=== PATIENT | male | born 1985 | race Caucasian/White ===

== ENCOUNTER 2024-02-19 09:31 | Outpatient (OUT) | payer BC, SELFPAY ==
--- NOTE | 2024-02-19 | XR_ITS ---
[address] [address] Patient Name: MIGUELITO FIELDS MRN: [id number] date: 1985 Sex: M Assigned Patient Location: Current Patient Location: Accession/Order Number: [id number] Exam Date: 02/19/2024 09:40 Report Date: 02/19/2024 10:10 At the request of: ARPITA FLORES Procedure: XR foot RT min 3V PROCEDURE: XR foot RT min 3V COMPARISON: None. HISTORY: RIGHT FOOT PAIN FINDINGS: BONES:No fracture, acute abnormality, or significant arthropathy. SOFT TISSUES:Negative. No visible soft tissue swelling. EFFUSION:None visible. OTHER: Negative. XR/XR foot RT min 3V IMPRESSION: No acute radiographic abnormality Electronically authenticated by: YESSY COLBERT Date: 02/19/2024 10:10
== END 2024-02-19 09:32 | disposition home or self-care (01) ==
LOC: EC 09:33
PROVIDERS: Visit Provider Podiatrist Foot & Ankle Surgery
DX: M79.671 Pain in right foot (principal)
CPT/HCPCS: 73630